=== PATIENT | male | born 1995 | race American Indian/Alaskan Native ===

== ENCOUNTER 2018-05-06 08:21 | Emergency (ER) | payer SELFPAY ==
[2018-05-06 09:51] VITALS: BP 132/77
[2018-05-06] MEDS ORDERED: MOTRIN PO ONE (10:54)
[2018-05-06] MEDS ORDERED: ZOFRAN ODT PO ONE (10:54)
[2018-05-06] MEDS ORDERED: NORCO 5/325 PO ONE (10:54)
--- NOTE | 2018-05-06 10:54 | Emergency Department Report ---
ED Back Pain/Injury HPI - General Chief Complaint: Back Pain/Injury Stated Complaint: BACK PAIN Time Seen by Provider: 05/06/18 10:45 Source: patient Limitations: No Limitations - History of Present Illness MD Complaint: back pain, back injury -: Sudden Similar Symptoms Previously: No Place: other (during recreational game of basketball) Severity: moderate Quality: dull Consistency: constant Worsens With: movement, walking Context: other (took a long stride while running and pulled lower back) Associated Symptoms: denies other symptoms - Related Data Previous Rx's Medication Instructions Recorded Last Taken Type Ibuprofen [Motrin 600 MG tab] 600 mg PO Q6H PRN #20 tablet 05/02/16 Unknown Rx Penicillin Vk [Veetids TAB] 500 mg PO BID #40 tablet 05/02/16 Unknown Rx Ibuprofen 400 mg PO QID 5 Days #20 tablet 05/06/18 Unknown Rx Allergies Allergy/AdvReac Type Severity Reaction Status Date / Time No Known Allergies Allergy Unverified 05/08/13 13:51 ED Review of Systems ROS: Stated complaint: BACK PAIN Other details as noted in HPI Constitutional: denies: fever Respiratory: denies: cough Cardiovascular: denies: chest pain Gastrointestinal: denies: abdominal pain ED Past Medical Hx - Past Medical History Previous Medical History?: No - Surgical History Past Surgical History?: No - Social History Smoking Status: Current Every Day Smoker Substance Use Type: None - Medications Home Medications: Home Medications Medication Instructions Recorded Confirmed Last Taken Type Ibuprofen [Motrin 600 MG tab] 600 mg PO Q6H PRN #20 tablet 05/02/16 Unknown Rx Penicillin Vk [Veetids TAB] 500 mg PO BID #40 tablet 05/02/16 Unknown Rx Ibuprofen 400 mg PO QID 5 Days #20 tablet 05/06/18 Unknown Rx ED Physical Exam - General Limitations: No Limitations General appearance: alert, in no apparent distress - Head Head exam: Present: atraumatic, normocephalic - Eye Eye exam: Present: normal appearance - ENT ENT exam: Present: mucous membranes dry - Neck Neck exam: Present: normal inspection, full ROM - Respiratory Respiratory exam: Absent: respiratory distress - Extremities Exam Extremities exam: Present: normal inspection, full ROM - Back Exam Back exam: Present: CVA tenderness (L), muscle spasm, paraspinal tenderness, other (left lumbar region, edematous region at left CVA) - Neurological Exam Neurological exam: Present: alert, oriented X3 - Skin Skin exam: Present: warm, dry, intact, normal color ED Course Vital Signs 05/06/18 09:49 Temperature 98.5 F Pulse Rate 46 L Respiratory 16 Rate Blood Pressure 132/77 O2 Sat by Pulse 100 Oximetry ED Medical Decision Making - Medical Decision Making Lumbar sprain: rest recommended, rx: ibuprofen ice, heat Critical care attestation.: If time is entered above; I have spent that time in minutes in the direct care of this critically ill patient, excluding procedure time. ED Disposition Clinical Impression: Low back strain Disposition: DC-01 TO HOME OR SELFCARE Is pt being admited?: No Does the pt Need Aspirin: No Condition: Stable Instructions: Low Back Strain (ED) Prescriptions: Ibuprofen 400 mg PO QID 5 Days #20 tablet Referrals: [facility] [Outside] - 3-5 Days Forms: Work/School Release Form(ED)
== END 2018-05-06 11:08 | disposition home or self-care (01) ==
LOC: ED 08:21
DX: S39.012A Strain of muscle, fascia and tendon of lower back, initial encounter (principal); F17.200 Nicotine dependence, unspecified, uncomplicated; X50.1XXA Overexertion from prolonged static or awkward postures, initial encounter; Y93.67 Activity, basketball; Y99.8 Other external cause status; Y92.89 Other specified places as the place of occurrence of the external cause
CPT/HCPCS: 99282; Q0162